=== PATIENT | male | born 1965 | race Caucasian/White ===

== ENCOUNTER 2017-02-08 13:49 | Inpatient (IN) | payer MEDICAID ==
[~2017-02-08] VITALS: Ht 172.7 cm; Wt 95.4 kg
--- NOTE | 2017-02-08 15:44 | NUR ---
MSE COMPLETED BY DR. BENNETT
--- NOTE | 2017-02-08 16:00 | NUR ---
EKG AND XRAY COMPLETED
--- NOTE | 2017-02-08 16:04 | NUR ---
PT BIB SIGNIFICANT OTHER FOR C/O RIGHT FOOT SWELLING, REDNESS AND PAIN X 5 DAYS, PT REPORTS HE "DROPPED SOMETHING ON TOP OF FOOT WITH WORK BOOT ON" PT CONTINUED TO WORK WITH BOOTS ON, STS WOUND TO BOTTOM OF FOOT AND RIGHT SIDE OF FOOT WITH INCREASED SWELLING, PT STS SWELLING WAS WORSE THEN TODAY, CIRCULAR OPEN WOUND/ULCER NOTED TO BOTTOM OF RIGHT FOOT, INCREASED BLANCHABLE REDNESS NOTED TO TOP OF PTS FOOT WITH SKIN PEELING, PT REPORTS 5/10 PAIN TO SITE, +PMSC TO EXT, PT AAOX4, ROMANSH SPEAKING, RESP EVEN AND UNLABORED, IN NO ACUTE DISTRESS, WILL CONTINUE TO MONITOR
--- NOTE | 2017-02-08 16:15 | NUR ---
LAB AT BEDSIDE FOR BLOOD CULTURES
[2017-02-08 16:39] LABS: BASOPHIL % 0.4 % (0-2); PLATELET COUNT 352 x10^3mcL (130-400)
[2017-02-08 16:53] LABS: CALCIUM 9.1 mg/dL (8.5-10.1); CHLORIDE SERUM 97 mmol/L (98-107); GFR1 > 60 mL/min; GLUCOSE SERUM 278 mg/dL (74-106); SODIUM SERUM 135 mmol/L (136-145)
[2017-02-08 16:57] LABS: UA SPECIFIC GRAVITY >=1.030 (1.005-1.035); microscopic required? YES; urine erythrocyte 1+ (NEGATIVE)
[2017-02-08] MEDS ORDERED: AMO500 PO (16:57)
[2017-02-08] MEDS ORDERED: IBUPROFEN800 MG PO (16:58)
[2017-02-08 17:01] LABS: CK-MB 1.3 ng/mL (0-3.6)
[2017-02-08 17:03] LABS: ALBUMIN 3.4 g/dL (3.4-5.0); ALKALINE PHOSPHATASE 140 U/L (46-116); ALT/SGPT 51 U/L (16-63); AST/SGOT 26 U/L (15-37); BILIRUBIN TOTAL 0.2 mg/dL (0.20-1.00); C REACTIVE PROTEIN 3.8 mg/dL (<=0.9); TOTAL PROTEIN, SERUM 9.5 g/dL (6.4-8.2)
[2017-02-08 17:05] LABS: FREE T4 1.37 ng/dL (0.76-1.46); FREE THYROXINE INDEX 3.7 ug/dL (1.4-4.5); T4(THYROXINE) 9.2 ug/dL (4.7-13.3)
[2017-02-08 17:06] LABS: T3 TOTAL 0.67 ng/mL
--- NOTE | 2017-02-08 17:15 | NUR ---
SECOND IV ABX INFUSING AT THIS TIME PER MD ORDER, PLEASE SEE EMAR, PT RESTING IN BED IN A POSITION OF COMFORT, RESP EVEN AND UNLABORED, ON FULL MONITORS, CALL LIGHT WITHIN REACH, WILL CONTINUE TO MONITOR
[2017-02-08 17:22] VITALS: BP 149/91
--- NOTE | 2017-02-08 17:29 | NUR ---
REPORT GIVEN TO ELVIS ABDULLAHI TELE FLOOR TO ASSUME CARE OF PT AFTER TRANSPORT
[2017-02-08 17:45] LABS: PHOSPHOROUS 3.2 mg/dL (2.5-4.9)
[2017-02-08 17:46] LABS: CHOLESTEROL/HDL RATIO 4.1
--- NOTE | 2017-02-08 17:50 | NUR ---
REC'D PT FROM ER VIA [facility]. PT IS AAOX4. TELE #8 SR. DENIES PAIN OR DISCOMFORT. LUNG SOUNDS CLEAR. NO SOB NOTED. SWELLING AND REDNESS NOTED TO RIGHT FOOT. OPEN WOUND ON TOP AND BOTTOM OF RIGHT FOOT, PAOLA. IV NOTED TO RFA. INTACT AND PATENT. ORIENTED PT TO CALL LIGHT. BED IN LOWEST POSITION. WILL ENDORSE TO PRIMARY RN.
[2017-02-08 17:58] LABS: ERYTHROCYTE SED RATE 86 mm/hr (0-15)
[2017-02-08 18:05] LABS: AMPHETAMINE QUAL UR NONE DETECTED (NEG <=1000)
--- NOTE | 2017-02-08 18:05 | NUR ---
PATIENT RECEIVED AND SEEN. AT THIS TIME THE PATIENT IS RESTING IN BED WITH FAMILY AT BEDSIDE. PATIENT IS AAOX4. APPEARS CALM. DENIES PAIN. 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 RIGHT FOOT APPEARS SWOLLEN AROUND SITE OF OPEN WOUNDS. NS INFUSING IN RFA AT 100CC/HR, IV PATENT AND INTACT. TELE [address]. RESPIRATIONS EVEN AND UNLABORED ON ROOM AIR. CALL LIGHT WITHIN REACH, ALL SAFETY MEASURES IN PLACE. WILL CONTINUE TO MONITOR.
[2017-02-08 18:08] VITALS: BP 155/100
--- NOTE | 2017-02-08 19:15 | NUR ---
REPORT GIVEN TO [facility] NURSE THOMAS. AT THIS TIME THE PATIENT IS RESTING IN BED WITH FAMILY AT BEDSIDE. DENIES PAIN. IV INFUSING AT 100CC/HR. PATIENT DOES NOT SHOW SIGNS OF ACUTE DISTRESS. RESPIRATIONS EVEN AND UNLABORED ON ROOM AIR. CALL LIGHT WITHIN REACH.
--- NOTE | 2017-02-08 19:30 | NUR ---
REC'D PT RESTING IN BED. PT IS AAOX4. TELE #8 SR. DENIES PAIN OR DISCOMFORT. LUNG SOUNDS CLEAR. NO SOB NOTED. SWELLING AND REDNESS NOTED TO RIGHT FOOT. OPEN WOUND NOTED TO TOP AND BOTTOM OF RIGHT FOOT. IVF INFUSING TO RFA. INTACT AND PATENT. BED IN LOWEST POSITION. CALL LIGHT WITHIN REACH. WILL CONTINUE TO MONITOR.
[2017-02-08 20:20] VITALS: BP 142/92
--- NOTE | 2017-02-08 20:58 | NUR ---
REPORT GIVEN TO ELVIS KEARNS.
--- NOTE | 2017-02-08 21:00 | NUR ---
REPORT RECEIVED FROM ELVIS FLOYD. AT BEDSIDE SPEAKING WITH PT AND FAMILY. ALL NEEDS TENDED TO. CALL LIGHT WITHIN REACH. BED IS IN LOWEST POSITION. WILL CONTINUE TO MONITOR CLOSELY.
--- NOTE | 2017-02-09 02:45 | NUR ---
PT AWAKE, SLEEPING IN INTERVALS. NO DISTRESS NOTED. RIGHT FOOT ELEVATED AND WOUND AREA IS PAOLA. CALL LIGHT WITHIN REACH. BED IS IN LOWEST POSITION. WILL CONTINUE TO MONITOR CLOSELY.
[2017-02-09 05:55] VITALS: BP 139/85
[2017-02-09 05:59] LABS: CALCIUM 8.4 mg/dL (8.5-10.1); CARBON DIOXIDE 28.5 mmol/L (21-32); CHLORIDE SERUM 106 mmol/L (98-107); CREATININE SERUM 0.8 mg/dL (0.7-1.3); GFR1 > 60 mL/min; GLUCOSE SERUM 205 mg/dL (74-106); SODIUM SERUM 141 mmol/L (136-145)
--- NOTE | 2017-02-09 06:15 | NUR ---
FSBS IS 206, 6 UNITS OF REGULAR INSULIN GIVEN ORDERED. ZOSYN INFUSING WELL AT THIS TIME. ALL NEEDS TENDED TO. WILL ENDORSE TO INCOMING SHIFT.
[2017-02-09 06:39] LABS: BASOPHIL % 0.4 % (0-2); PLATELET COUNT 293 x10^3mcL (130-400); RED CELL DISTRIBUTION WIDTH 13.9 % (11.5-14.5)
--- NOTE | 2017-02-09 07:47 | NUR ---
RECEIVED PT IN BED, A/A/O X 4, CALM, COOPERATIVE. ON TELE x 8, SHOWING SR WITH HR 68. KODY RADIAL AND PEDAL PULSES PRESENT, NO EDEMA, CAP REFILL < 3 SECS. KODY LUNGS CLEAR, CHEST RISING EVENLY. ABD SOFT, ROUND, NON-TENDER, NORMOACTIVE BOWEL SOUNDS X 4 QUADS. VOIDS FREELY, NO C/O PAIN OR DYSURIA, ABLE TO PASS GAS. PT ABLE TO AMBULATE WITHOUT GAIT OR BALANCE IMPAIRMENT. HAS R FOOT OPEN WOUND BY R 5TH TOE, PAIN OR DRAINAGE, PAOLA. DENIES PAIN AT THIS TIME. IV SITE AT RFA CDI, RUNNING NS AT 160 ML/HR. SIDE RAILS UP X 2, BED IN LOW POSITION, CALL LIGHT WITHIN REACH. WILL CONTINUE TO MONITOR.
--- NOTE | 2017-02-09 08:15 | NUR ---
DR TSANG, DR ROJO, RESIDENTS, CHARGE NURSE, AND ASSIGNED NURSE CAME IN TO SEE PT; MD DISCUSSED CARE PLAN FOR PT TODAY; PT VERBALIZED UNDERSTANDING.
[2017-02-09 08:20] VITALS: BP 163/94
--- NOTE | 2017-02-09 10:40 | NUR ---
DR PAUL CAME IN TO SEE PT; EXPLAINED HOW WOUND WAS FORMED, AND WHAT PROCEDURES WILL BE DONE FOR PT; ALL QUESTIONS WERE ANSWERED; PT AND VERBALIZED UNDERSTANDING.
--- NOTE | 2017-02-09 10:50 | NUR ---
ALL CONSENTS SIGNED AND WITNESSED FOR EXCISIONAL DEBRIDEMENT / INCISION DRAINAGE OF R FOOT AND POSSIBLE 4TH AND 5TH RAY AMPUTATION.
[2017-02-09 12:33] VITALS: BP 151/96
--- NOTE | 2017-02-09 13:00 | NUR ---
PT IN BED, WATCHING TELEVISION, BY BEDSIDE. NO RESPIRATORY DISTRESS, PAIN, OR DISCOMFORT NOTED. WILL CONTINUE TO MONITOR.
--- NOTE | 2017-02-09 14:25 | NUR ---
WENT TO SURGERY PER [facility]INA AWAKE,ALERT AND ORIENTED.
--- NOTE | 2017-02-09 18:43 | NUR ---
PT IN BED, FAMILY MEMBERS BY BEDSIDE, TALKING TO HIM. NO RESPIRATORY DISTRESS, PAIN, OR DISCOMFORT NOTED. WILL ENDORSE TO NOC SHIFT.
--- NOTE | 2017-02-09 19:30 | NUR ---
RECEIVED REPORT FROM ELVIS POWERS. PT RESTING IN BED COMFORTABLY IN NO ACUTE DISTRESS OR DISCOMFORT. AAOX4. ON TELE MON 8 SR. DENIES ANY CHEST DISCOMFORT. PER PULSES MOD. TRACE EDEMA ON RLE. IN RA WITH SAT OF 96%. BREATHING EVENLY AND UNLABORED. NO SOB NOTED. LUNGS CTA. BS ACTIVE. ABD SOFT AND NON DISTENDED. LAST BM FORMED STOOL PER PT. VOIDS FREELY WITHOUT ANY PAIN. BEDRESTED AT THIS TIME. PT SP AMPUTATION ON THE R TOE WITH INCISIONS ON ACHILLES WITH SHAHEED DRAIN, DRAINING SERO-SANGUINOUS BLOOD. DENIES OF ANY PAIN AT THIS TIME. IV ON RFA PATENT. SAFETY MEASURES ENSURED. FAMILY AT THE BEDSIDE. INSTRUCTED PT AND FAMILY TO CALL FOR ANY NEEDS/ASSISTANCE. CALL LIGHT WITHIN REACH. WILL CONT TO MONITOR PT.
[2017-02-09 20:28] VITALS: BP 120/76
[2017-02-10 04:39] VITALS: BP 135/87
--- NOTE | 2017-02-10 04:53 | NUR ---
PT SLEPT COMFORTABLY THROUGH OUT THE NIGHT. WAS IN NO ACUTE DISTRESS OR DISCOMFORT. SAFETY MEASURES WERE ENSURED. CALL LIGHT WITHIN REACH. STAYED THROUGH OUT THE NIGHT AT BEDSIDE.
[2017-02-10 06:20] LABS: BASOPHIL % 0.3 % (0-2); CALCIUM 8.1 mg/dL (8.5-10.1); CARBON DIOXIDE 27.2 mmol/L (21-32); CHLORIDE SERUM 104 mmol/L (98-107); CREATININE SERUM 0.8 mg/dL (0.7-1.3); GFR1 > 60 mL/min; GLUCOSE SERUM 246 mg/dL (74-106); PLATELET COUNT 294 x10^3mcL (130-400); POTASSIUM SERUM 3.8 mmol/L (3.5-5.1); RED CELL DISTRIBUTION WIDTH 13.9 % (11.5-14.5); SODIUM SERUM 138 mmol/L (136-145)
--- NOTE | 2017-02-10 07:20 | NUR ---
REASSESSMENT DONE. PT IN LOW FOWLERS. AWAKE, COOPERATIVE OF CARE. DENIES PAIN. RIGHT FOOT ELEVATED ON PILLOW. DENIES PAIN AT MOMENT. S/P I&D OF RIGHT FOOT. DRESSING IN PLACE CDI. SHAHEED DRAIN IN PLACE AN PATENT. BRACE IN PLACE. IV INFUSING WELL TO RFA #20 NS AT 160ML/HR. BED IN LOWEST POSITION, CALL LIGHT WITHIN REACH.
[2017-02-10 08:39] VITALS: BP 140/83
[2017-02-10] MEDS ORDERED: LIPI10 PO (10:38)
[2017-02-10] MEDS ORDERED: ZES10 PO (10:39)
[2017-02-10] MEDS ORDERED: COL100 PO (10:42)
[2017-02-10] MEDS ORDERED: METFORMIN HCL1000 MG PO (10:43)
[2017-02-10] MEDS ORDERED: THERA TABS1 TAB PO (10:43)
[2017-02-10] MEDS ORDERED: IBUPROFEN800 MG PO (10:44)
[2017-02-10] MEDS ORDERED: ACETAMINOPHEN-H1 TA1 PO (10:45)
[2017-02-10] MEDS ORDERED: BG FS (11:18)
[2017-02-10] MEDS ORDERED: HUMULIN R100 U/1 M1 SC (11:23)
--- NOTE | 2017-02-10 11:45 | NUR ---
DIABETIC TEACHING PPROVIDED. PT VERBALIZED UNDERSTANDING FOR MONITORING BLOOD GLUCOSE LEVEL.
--- NOTE | 2017-02-10 12:10 | NUR ---
RECEIVED CALL FROM [facility]- FOR WOUND CULTURE- E-COLI MDRO OF WOUND. DR. KERNS MADE AWARE OF RESULTS.
[2017-02-10] MEDS ORDERED: LAC PO (12:24)
[2017-02-10] MEDS ORDERED: LEVOFLOXACIN500 M1 PO (12:24)
[2017-02-10 12:32] VITALS: BP 110/77
[2017-02-10 13:24] VITALS: BP 110/77
--- NOTE | 2017-02-10 14:15 | NUR ---
DISCHARGE INSTRUCTIONS GIVEN TO PATIENT AND . BOTH VERBALIZED UNDERSTANDING FOR FOLLOW UP APPOINTMENT AND PRESCRIPTION ORDER. WOUND PICTURE NOT OBTAINED DUE TO DRESSING CHANGE TO BE DONE BY [facility] [employer] ON 02/12/17. SHAHEED DRAIN IN PLACE DRAINED 5ML OF SEROUSSANGUINEOUS FLUID. TELE BOX REMOVED, IV DC'D CATHETER INTACT.
== END 2017-02-10 14:30 | disposition home or self-care (01) | DRG 710 ==
LOC: ED 13:49 → DU 16:53
PROVIDERS: Nutritionist Nutrition, Education; Specialist; ADMIT Family Medicine
PROC: 0L8N0ZZ Division of Right Lower Leg Tendon, Open Approach (ICD-10-PCS; 2017-02-09)
PROC: 0Y6M0ZF Detachment at Right Foot, Partial 5th Ray, Open Approach (ICD-10-PCS; principal; 2017-02-09 15:00)
DX: A41.9 Sepsis, unspecified organism (principal); N17.0 Acute kidney failure with tubular necrosis; E11.621 Type 2 diabetes mellitus with foot ulcer; E11.65 Type 2 diabetes mellitus with hyperglycemia; E11.42 Type 2 diabetes mellitus with diabetic polyneuropathy; E11.51 Type 2 diabetes mellitus with diabetic peripheral angiopathy without gangrene; E87.1 Hypo-osmolality and hyponatremia; L97.411 Non-pressure chronic ulcer of right heel and midfoot limited to breakdown of skin; R65.20 Severe sepsis without septic shock; B96.20 Unspecified Escherichia coli [E. coli] as the cause of diseases classified elsewhere; L85.3 Xerosis cutis; R31.9 Hematuria, unspecified; R74.0 Nonspecific elevation of levels of transaminase and lactic acid dehydrogenase [LDH]; D64.9 Anemia, unspecified; E78.1 Pure hyperglyceridemia; E66.9 Obesity, unspecified; Z68.32 Body mass index [BMI] 32.0-32.9, adult; Z79.01 Long term (current) use of anticoagulants; Z79.84 Long term (current) use of oral hypoglycemic drugs; Z79.1 Long term (current) use of non-steroidal anti-inflammatories (NSAID)
CPT/HCPCS: 36600; 82962; 83880; 84439; 90715; 94150; 97110-GP; 97116-GP; 97530-GP; J2001; J2250; J2270; J2405; J2543; J2704; J3010; J3490; J7030; J7620; Q0092